=== PATIENT | male | born 1975 | race Caucasian/White ===

== ENCOUNTER 2018-03-05 17:46 | Emergency (ER) | payer MEDICARE, OTHER ==
[~2018-03-05] VITALS: Ht 165.1 cm; Wt 68.9 kg
--- OUTSIDE RECORDS SUMMARY | ~2018-03-05 | XMS | Clinical Summary ---
Demographics + + + | Address | [address] | | | [place] [address] | + + + | Home Phone | | + + + | Preferred Language | Unknown | + + + | Marital Status | Single | + + + | Latter Day Affiliation | Unknown | + + + | Race | Unknown | + + + | Ethnic Group | Unknown | + + + Author + + + | Author | [facility] | | | and [place] | + + + | Organization | [facility] | | | and [place] | + + + | Address | Unknown | + + + | Phone | Unavailable | + + + Support + + +---------+ + | Name | Relationship | Address | Phone | + + +---------+ + | JAMES CHRISTIE | ECON | Unknown | | + + +---------+ + Care Team Providers + +------+ + | Care Placement Secretary Name | Role | Phone | + +------+ + PP | Unavailable | + +------+ + Allergies No Known Allergies Current Medications + + +-------+---------+------+------+-------+ | Prescription | Sig. | Disp. | Refills | Star | End | Statu | | | | | | t | Date | s | | | | | | Date | | | + + +-------+---------+------+------+-------+ | Pediatric | Take 2 by mouth | | | 06/0 | | Activ | | Xblduvsu-Xgubbsoi-A | daily | | | /20 | | e | | (GUMMI BEAR | | | | 10 | | | | MULTIVITAMIN/MIN) | | | | | | | | CHEW | | | | | | | + + +-------+---------+------+------+-------+ | topiramate | Take 5 tablets by | | | 06/0 | | Activ | | (TOPAMAX) 100 mg | mouth twice daily | | | 9/20 | | e | | tablet | | | | 10 | | | + + +-------+---------+------+------+-------+ | pregabalin | Take 100 mg by mouth | | | 03/2 | | Activ | | (LYRICA) 100 mg | 3 times daily. | | | 1/20 | | e | | capsule | | | | 11 | | | + + +-------+---------+------+------+-------+ | pregabalin | one at bedtime along | | | 05/0 | | Activ | | (LYRICA) 50 MG | with 100 mg size | | | 9/20 | | e | | capsule | for a week then 2 at | | | 11 | | | | | bedtime with the | | | | | | | | 100 mg size | | | | | | + + +-------+---------+------+------+-------+ | lamoTRIgine | 5 tablets by mouth | | | 05/3 | | Activ | | (LAMICTAL XR) 100 MG | in am and 5 tablets | | | 07/30 | | e | | TB24 | at bedtime | | | 11 | | | + + +-------+---------+------+------+-------+ Active Problems + + + | Problem | Noted Date | + + + | CEREBRAL PALSY | | + + + | LOC-REL EPILEPSY and ES W/CPS W/INTRACTABLE EPIL | | + + + + + | Overview: ICD-10 Record update | + + + +---+ | LOC-REL EPILEPSY and ES W/SPS W/INTRACTABLE EPIL | | + +---+ + + | Overview: ICD-10 Record update | + + + +---+ | SEIZURE DISORDER, COMPLEX PARTIAL | | + +---+ + + | Overview: ICD-10 Record update | + + Social History + +-------+ +--------+------+ | Tobacco Use | Types | Packs/Day | Years | Date | | | | | Used | | + +-------+ +--------+------+ | Never Assessed | | | | | + +-------+ +--------+------+ + + + | Sex Assigned at | Date Recorded | | | | + + + | Not on file | | + + + Last Filed Vital Signs + + + + | Vital Sign | Reading | Time Taken | + + + + | Blood Pressure | 120/80 | 08/13/2010 0000 PST | + + + + | Pulse | - | - | + + + + | Temperature | - | - | + + + + | Respiratory Rate | - | - | + + + + | Oxygen Saturation | - | - | + + + + | Inhaled Oxygen | - | - | | Concentration | | | + + + + | Weight | 65.8 kg (145 lb) | 09/28/2010 PDT | + + + + | Height | 167.6 cm (5' 6") | 12/17/2009 0000 PDT | + + + + | Body Mass Index | 23.4 | 09/28/2010 0000 PDT | + + + + Plan of Treatment + + + + + | Health Maintenance | Due Date | Last Done | Comments | + + + + + | Vaccine: | | | | | Dtap/Tdap/Td (1 - | 2 | | | | Tdap) | | | | + + + + + | Vaccine: Influenza | | | | | (#1) | 8 | | | + + + + + Results Not on filefrom Last 3 Months
--- OUTSIDE RECORDS SUMMARY | ~2018-03-05 | XMS | Clinical Summary ---
Demographics + + + | Address | [address] | | | [place] [address] | + + + | Home Phone | | + + + | Preferred Language | Unknown | + + + | Marital Status | Single | + + + | Mu-Ism Affiliation | Unknown | + + + | Race | Unknown | + + + | Ethnic Group | Unknown | + + + Author + + + | Author | [facility] | | | and [place] | + + + | Organization | [facility] | | | and [...] Team Providers + +------+ + | Care Field Support Engineer Name | Role | Phone | + [...] | 06/0 | | Activ | | Fxltugux-Pzrrkqjt-Z | daily | | | /20 | [...]
--- OUTSIDE RECORDS SUMMARY | ~2018-03-05 | XMS | Clinical Summary ---
Demographics + + + | Address | [address] | | | [place] [address] | + + + | Home Phone | | + + + | Preferred Language | Unknown | + + + | Marital Status | Single | + + + | Zoroastrianism Affiliation | CAT | + + + | Race | White | + + + | Ethnic Group | Not or | + + + Author + + + | Author | [facility] | + + + | Organization | [facility] | + + + | Address | Unknown | + + + | Phone | Unavailable | + + + Support + + + + + | Name | Relationship | Address | Phone | + + + + + | David Constantino | ECON | [address] | | | | | [place] | | | | | [address] | | + + + + + Care Team Providers + +------+ + | Care Sales Team Member Name | Role | Phone | + +------+ + | Андрей Arzola MD | PP | | + +------+ + Source Comments [facility] is fully live on both [facility] and [facility] InPatient.[facility] Allergies No Known Allergies Current Medications + + +---------+---------+------+------+-------+ | Prescription | Sig. | Disp. | Refills | Star | End | Statu | | | | | | t | Date | s | | | | | | Date | | | + + +---------+---------+------+------+-------+ | lamoTRIgine 100 mg | Take 1 tablet by | | | 02/ | | Activ | | oral tablet | mouth once daily. | | | 820 | | e | | extended release | | | | 16 | | | | 24hr | | | | | | | + + +---------+---------+------+------+-------+ | topiramate 200 mg | Take 1 tablet by | | | 02/2 | | Activ | | oral tablet | mouth four times | | | 6/20 | | e | | | daily. | | | 16 | | | + + +---------+---------+------+------+-------+ | topiramate 100 mg | Take 1 tablet by | | | 02/2 | | Activ | | oral tablet | mouth two times | | | 6/20 | | e | | | daily. | | | 16 | | | + + +---------+---------+------+------+-------+ | prednisoLONE | Instill 1 drop into | 10 mL | 2 | 04/0 | | Activ | | acetate 1 % | both eyes four times | | | 7/20 | | e | | ophthalmic | daily. | | | 16 | | | | drops,suspension | | | | | | | + + +---------+---------+------+------+-------+ Active Problems No known active problems Family History + + +------+ + | Medical History | Relation | Name | Comments | + + +------+ + | Cancer | Father | | | + + +------+ + | Cancer | Maternal | | | | | Grandfath | | | | | er | | | + + +------+ + + +------+--------+ + | Relation | Name | Status | Comments | + +------+--------+ + | Father | | | | + +------+--------+ + | Maternal Grandfather | | | | + +------+--------+ + Social History + +-------+ +--------+------+ | Tobacco Use | Types | Packs/Day | Years | Date | | | | | Used | | + +-------+ +--------+------+ | Never Smoker | | | | | + +-------+ +--------+------+ + +---+---+---+ | Smokeless Tobacco: | | | | | Never Used | | | | + +---+---+---+ + + +---------+ + | Alcohol Use | Drinks/We | oz/Week | Comments | | | ek | | | + + +---------+ + | No | | | | + + +---------+ + + + + | Sex Assigned at | Date Recorded | | | | + + + | Not on file | | + + + Last Filed Vital Signs + + + + | Vital Sign | Reading | Time Taken | + + + + | Blood Pressure | 125/87 | 10/16/2015 2:47 PM PDT | + + + + | Pulse | 73 | 10/16/2015 2:47 PM PDT | + + + + | Temperature | 36.5 C (97.7 F) | 10/16/2015 2:47 PM PDT | + + + + | Respiratory Rate | 14 | 10/16/2015 2:47 PM PDT | + + + + | Oxygen Saturation | 99% | 10/16/2015 2:47 PM PDT | + + + + | Inhaled Oxygen | - | - | | Concentration | | | + + + + | Weight | 62.4 kg (137 lb 9.6 | 10/16/2015 12:04 PM PDT | | | oz) | | + + + + | Height | 152.4 cm (5') | 10/16/2015 12:04 PM PDT | + + + + | Body Mass Index | 26.87 | 10/16/2015 12:04 PM PDT | + + + + Plan of Treatment + + + + + | Health Maintenance | Due Date | Last Done | Comments | + + + + + | INFLUENZA VACCINE | | | | | (FLU SHOT) | 8 | | | + + + + + Implants + +------+------+ +--------+--------+--------+ | Implanted | Type | Area | Manufacture | Device | Expira | Model | | | | | r | | tion | / | | | | | | Identi | Date | Serial | | | | | | fier | | / Lot | + +------+------+ +--------+--------+--------+ | Lens Iol Acrysof Iq 13mm 6mm | | | KATY | | 03/10/ | [id number] | | Posterior Foldable Acrylic - | | | | | 2020 | | | [id number]: Qty: 1 | | | | | | /[id number] | | on 10/16/2015 by [place], | | | | | | [id number] | | Bryn Jeffers MD | | | | | | / | + +------+------+ +--------+--------+--------+ Results Not on filefrom Last 3 Months Insurance + +--------+ +--------+ + + | Payer | Benefi | Subscriber | Type | Phone | Address | | | t Plan | ID | | | | | | / | | | | | | | Group | | | | | + +--------+ +--------+ + + | MEDICARE | MEDICA | xxxxxxxxxx | Medica | [phone]- | [address] | | | RE A & | | re | [phone] | [place] [address] | | | B | | | | | + +--------+ +--------+ + + | [place] | OHP | xxxxxxxx | Medica | [phone] | [address] [phone] | | | PLUS | | id | [phone] | [place] [address] | | | OPEN | | | | | | | CARD | | | | | + +--------+ +--------+ + + + +--------+ +--------+ + + | Guarantor Name | Accoun | Relation to | Date | Phone | Billing Address | | | t Type | Patient | of | | | | | | | | | | + +--------+ +--------+ + + | DAVID CONSTANTINO | Person | Self [birth year] Home: | [address] | | | al/Fam | | 1975 | [phone] | [place] [address] | | | tremayne | | | [phone] | | + +--------+ +--------+ + +"
--- OUTSIDE RECORDS SUMMARY | ~2018-03-05 | XMS | Clinical Summary ---
Demographics + + + | Address | [address] | | | [place] [address] | + + + | Home Phone | | + + + | Preferred Language | Unknown | + + + | Marital Status | Single | + + + | Judaism Affiliation | CAT | + + + | Race | White | + + + | Ethnic Group | Not or | + + + Author + + + | Author | [facility] | + + + | Organization | [facility] | + + + | Address | Unknown | + + + | Phone | Unavailable | + + + Support + + + + + | Name | Relationship | Address | Phone | + + + + + | David Constantino | ECON | [address] | | | | | [place] | | | | | [address] | | + + + + + Care Team Providers + +------+ + | Care In Home Sales Representative Name | Role | Phone | + +------+ + | Андрей Arzola MD | PP | | + +------+ + Source Comments [facility] is fully live on both [facility] Ambulatory and [facility] InPatient.[facility] Allergies No Known Allergies Current Medications + [...] | | | 2020 | | | [id number]: Qty: 1 | | | | | | /[id number] | | on 10/16/2015 by [place], | | | | | | [id number] | | Bryn Jeffers MD | | [...] RE A & | | re | [phone] | [place] [address] | | | B | | | | | + +--------+ +--------+ + + | MEDICAID [place] | OHP | xxxxxxxx | Medica | [phone] | [address] [phone] | | | PLUS | | id | [phone] | [place] [address] | | | OPEN | | | [...] | 1975 | [phone] | [place] [address] | | | tremayne | | | [phone] | | + +--------+ +--------+ + +"
[2018-03-05] MEDS ORDERED: LAMOTRIGINE100 M1 PO (18:01)
[2018-03-05] MEDS ORDERED: LEVETIRACETAM750 MG PO (18:01)
== END 2018-03-05 19:05 | disposition home or self-care (01) ==
LOC: ED 17:46
DX: S53.401A Unspecified sprain of right elbow, initial encounter (principal); W06.XXXA Fall from bed, initial encounter; Z79.899 Other long term (current) drug therapy
CPT/HCPCS: 73080; 99283

== ENCOUNTER 2018-12-13 08:56 | Emergency (ER) | payer MEDICARE, OTHER ==
[~2018-12-13] VITALS: Ht 165.1 cm; Wt 69.0 kg
[~2018-12-13 08:56] MED LIST: LAMOTRIGINE100 M1 PO; LEVETIRACETAM750 MG PO
== END 2018-12-13 11:05 | disposition home or self-care (01) ==
LOC: ED 08:56
PROC: 0HQ0XZZ Repair Scalp Skin, External Approach (ICD-10-PCS; principal; 2018-12-13)
DX: S01.01XA Laceration without foreign body of scalp, initial encounter (principal); S63.501A Unspecified sprain of right wrist, initial encounter; G40.909 Epilepsy, unspecified, not intractable, without status epilepticus; Z79.899 Other long term (current) drug therapy; W10.9XXA Fall (on) (from) unspecified stairs and steps, initial encounter
CPT/HCPCS: 12002; 73110; 99283-25

== ENCOUNTER 2025-01-22 09:25 | Emergency (ER) | payer OTHER, MEDICARE ==
[~2025-01-22] VITALS: Ht 165.1 cm; Wt 74.0 kg
[2025-01-22] MEDS ORDERED: DIPHTH,PERTUSS(ACELL),TET VAC 0.5 ML SYRINGE IM ONE (09:45)
[2025-01-22] MEDS ORDERED: LIDOCAINE/RACEPINEP/TETRACAINE 3 ML SYR TOP ONE (10:45)
[2025-01-22 11:32] VITALS: BP 137/82
== END 2025-01-22 11:23 | disposition home or self-care (01) ==
LOC: ED 09:25
DX: S01.01XA Laceration without foreign body of scalp, initial encounter (principal); Z79.899 Other long term (current) drug therapy; W18.09XA Striking against other object with subsequent fall, initial encounter
CPT/HCPCS: 12002; 70450; 90471; 90715; 99283-25

== ENCOUNTER 2025-01-27 09:54 | Emergency (ER) | payer OTHER, MEDICARE ==
[~2025-01-27] VITALS: Ht 165.1 cm; Wt 74.0 kg
--- OUTSIDE RECORDS SUMMARY | 2025-01-27 09:55 | XMS ---
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 [place] VISIT COUNT (12 MO.) 2 [facility] TOTAL 2 NOTE: Visits indicate total known visits. ED/UCC VISIT TRACKING (12 MO.) 01/27/2025 09:54 [facility] TYPE: Emergency COMPLAINT: - STAPLE REMOVAL 01/22/2025 09:26 [facility] [place] TYPE: Emergency COMPLAINT: - HEAD INJURY DIAGNOSES: - Laceration without foreign body of scalp, initial encounter - Other usp (current) drug therapy - Striking against other object with subsequent fall, initial encounter - Unspecified injury of head, initial encounter INPATIENT VISIT TRACKING (12 MO.) No inpatient visits to display in this time frame [email or web address]
[2025-01-27 10:21] VITALS: BP 142/92
== END 2025-01-27 10:22 | disposition home or self-care (01) ==
LOC: ED 09:54
DX: S01.01XD Laceration without foreign body of scalp, subsequent encounter (principal); W18.30XD Fall on same level, unspecified, subsequent encounter; Z79.899 Other long term (current) drug therapy
CPT/HCPCS: 99281